=== PATIENT | male | born 1970 | race Caucasian/White ===

== ENCOUNTER 2017-06-24 10:44 | Emergency (ER) | payer OTHER ==
[~2017-06-24] VITALS: Ht 185.4 cm; Wt 127.0 kg
[2017-06-24] MEDS ORDERED: IBUPROFEN 800800 M1 PO (11:41)
[2017-06-24] MEDS ORDERED: NORCO 5-325 TA1 EACH PO (11:41)
[2017-06-24 12:21] VITALS: BP 131/79
== END 2017-06-24 12:28 | disposition home or self-care (01) ==
LOC: M.ERS 10:44
DX: S96.912A Strain of unspecified muscle and tendon at ankle and foot level, left foot, initial encounter (principal); Z98.890 Other specified postprocedural states; X58.XXXA Exposure to other specified factors, initial encounter; Y93.89 Activity, other specified; Y92.89 Other specified places as the place of occurrence of the external cause; Y99.8 Other external cause status

== ENCOUNTER 2019-01-24 18:47 | Inpatient (IN) | payer OTHER ==
[~2019-01-24] VITALS: Ht 182.9 cm; Wt 133.4 kg
[~2019-01-24 18:47] MED LIST: IBUPROFEN 800800 M1 PO; NORCO 5-325 TA1 EACH PO
[2019-01-24 18:53] VITALS: BP 147/100
[2019-01-24 19:19] LABS: ABSOLUTE LYMPHOCYTES 1.1 thou/uL (0.8-5.3); ABSOLUTE MONOCYTES 1.1 thou/uL (0.0-1.2); ABSOLUTE NEUTROPHILS 10.6 thou/uL (1.6-8.1); BASOPHILS 0.4 %; EOSINOPHILS 0.2 %; HEMATOCRIT 44.1 % (42.0-52.0); HEMOGLOBIN 14.2 gm/dL (14.0-18.0); LYMPHOCYTES 8.6 %; MCH 28.4 pg (26.0-34.0); MCHC 32.3 g/dL (28.0-37.0); MONOCYTES 8.3 %; MPV 7.5 fl. (7.2-11.1); NUCLEATED RBCS 0 /100WBC; PLATELET COUNT* 346 thou/uL (150-400); POLYS 82.5 %; RBC 5.02 mil/uL (4.50-6.00); RDW-CV 15.1 % (10.5-14.5); WBC 12.9 thou/uL (4.0-11.0)
[2019-01-24 19:26] LABS: ANION GAP 12 mmol/L (7-16); BUN 14 mg/dL (7-18); CALCIUM 8.7 mg/dL (8.5-10.1); CHLORIDE 102 mmol/L (98-107); CO2 24 mmol/L (21-32); CREATININE 1.1 mg/dL (0.6-1.3); GLUCOSE 139 mg/dL (70-99); POTASSIUM 3.6 mmol/L (3.5-5.1); SODIUM 138 mmol/L (136-145)
[2019-01-24 19:35] LABS: ALBUMIN 3.4 g/dL (3.4-5.0); ALKALINE PHOSPHATASE 118 U/L (46-116); LIPASE 51 U/L (73-393); SGOT 13 U/L (15-37); SGPT 27 U/L (30-65); TOTAL BILIRUBIN 0.5 mg/dL (<0.1-1.0); TOTAL PROTEIN 7.6 g/dL (6.4-8.2); TROPONIN-I LEVEL <0.06 ng/mL (<0.06)
[2019-01-24 21:14] VITALS: BP 137/77
[2019-01-25 00:45] VITALS: BP 131/80
[2019-01-25 04:15] VITALS: BP 125/78
[2019-01-25 04:18] LABS: HEMATOCRIT 41.5 % (42.0-52.0); HEMOGLOBIN 13.8 gm/dL (14.0-18.0); MCH 29.3 pg (26.0-34.0); MCHC 33.3 g/dL (28.0-37.0); MPV 8.1 fl. (7.2-11.1); RBC 4.71 mil/uL (4.50-6.00); WBC 15.8 thou/uL (4.0-11.0)
[2019-01-25 04:30] LABS: CALCIUM 8.6 mg/dL (8.5-10.1); CREATININE 1.1 mg/dL (0.6-1.3); POTASSIUM 3.6 mmol/L (3.5-5.1)
--- NOTE | 2019-01-25 05:57 | NUR ---
Arrived to floor at 0041. He had a ruptured appy and had a lap appy. He has a distended abdomen, bowel sounds are hypoactive. He has lapsites x 3 with gauze and opsite. CHELLY drain is midlower abdomen under his umbilicus. He is drowsy but easily awakened. He is on 4L n/c and capno monitor, he hasn't alarmed and he does have a history of sleep apnea. He had pain med x 1. He has tried to vois but has been unable.
[2019-01-25 07:50] VITALS: BP 113/77
[2019-01-25 16:00] VITALS: BP 124/79
--- NOTE | 2019-01-25 16:10 | NUR ---
cm completed initial assessment to edu on role of cm and discuss d/c plan. pt a&O. pt lives at home w/brother. stated his brother and mother are is support system, mom will help out if need be. pt is active, employed and independent w/adls. pt has no hx w/snf or hh. 0 DMEs. cm to remain available to assist as needed.
--- NOTE | 2019-01-25 17:18 | NUR ---
PT REMAINED ALERT AND ORIENTED. PT RESTING IN ROOM. PT C/O PAIN AND NAUSEA. MEDS GIVEN ORDERED. PT TOLERATING CLEAR LIQUID DIET. FALL RISK PRECAUTIONS IN PLACE. HOURLY ROUNDING COMPLETED. WILL CONTINUE TO MONITOR.
[2019-01-25 20:00] VITALS: BP 128/85
[2019-01-26 00:15] VITALS: BP 127/87
[2019-01-26 04:10] VITALS: BP 136/94
[2019-01-26 04:48] LABS: HEMATOCRIT 40.8 % (42.0-52.0); HEMOGLOBIN 13.2 gm/dL (14.0-18.0); MCH 28.8 pg (26.0-34.0); MCHC 32.4 g/dL (28.0-37.0); MPV 7.9 fl. (7.2-11.1); RBC 4.59 mil/uL (4.50-6.00); RDW-CV 15.5 % (10.5-14.5); WBC 11.4 thou/uL (4.0-11.0)
--- NOTE | 2019-01-26 04:51 | NUR ---
PT ALERT AND ORIENTED. VITALS STABLE WITH 4L O2 BY NC. MEDS GIVEN ORDERED. PAIN MANAGED WITH OXY IR AND TORADOL. NAUSEA AND VOMITING RESOLVED WITH ZOFRAN. ABDOMINAL DRESSING CLEAN AND DRY. LOW ABD CHELLY DRAIN IN PLACE. FLUID RUNNING ORDERED. HOURLY ROUNDING COMPLETED. WILL CONTINUE TO MONITOR.
[2019-01-26 05:19] LABS: ALBUMIN 2.6 g/dL (3.4-5.0); CALCIUM 8.1 mg/dL (8.5-10.1); CREATININE 1.3 mg/dL (0.6-1.3); MAGNESIUM 2.2 mg/dL (1.8-2.4); PHOSPHORUS* 3.1 mg/dL (2.5-4.9); POTASSIUM 3.7 mmol/L (3.5-5.1); TOTAL BILIRUBIN 0.4 mg/dL (<0.1-1.0)
[2019-01-26 07:30] VITALS: BP 145/88
[2019-01-26 16:00] VITALS: BP 140/79
--- NOTE | 2019-01-26 17:27 | NUR ---
pt remained alert and oriented. pt resting in room. titrated off o2. pt up to chair. pt c/o nausea. meds given as ordered. pt vomitied 2100 cc green vomit. pt made npo after notifying surgery. call back if continues while npo, may need ng tube place. fall risk precautions in place. hourly rounding completed will continue to monitor.
[2019-01-26 19:40] VITALS: BP 108/71
[2019-01-27 04:13] LABS: HEMATOCRIT 40.8 % (42.0-52.0); HEMOGLOBIN 13.3 gm/dL (14.0-18.0); MCH 28.9 pg (26.0-34.0); MCHC 32.7 g/dL (28.0-37.0); MCV 88.2 fL (80.0-100.0); MPV 8.1 fl. (7.2-11.1); RBC 4.62 mil/uL (4.50-6.00); RDW-CV 15.7 % (10.5-14.5); WBC 10.8 thou/uL (4.0-11.0)
[2019-01-27 04:28] LABS: ALBUMIN 2.4 g/dL (3.4-5.0); CALCIUM 8.7 mg/dL (8.5-10.1); CREATININE 1.1 mg/dL (0.6-1.3); MAGNESIUM 2.2 mg/dL (1.8-2.4); PHOSPHORUS* 2.5 mg/dL (2.5-4.9); POTASSIUM 3.7 mmol/L (3.5-5.1); TOTAL BILIRUBIN 0.4 mg/dL (<0.1-1.0); TOTAL PROTEIN 6.8 g/dL (6.4-8.2)
--- NOTE | 2019-01-27 05:58 | NUR ---
PT ALERT AND ORIENTED. VITALS STABLE RA. MEDS GIVEN ORDERED. ABD DRESSING C/D/I. CHELLY DRAIN IN PLACE, DRAINING SEROUS DRAINAGE. TORADOL GIVEN PER PT REQUEST. ZOFRAN GIVEN ONCE THIS SHIFT, PT VOMITED 1000CC. NPO EXCEPT ICE CHIPS. HOURLY ROUNDINGS COMPLETED. WILL CONTINUE TO MONITOR.
[2019-01-27 07:25] VITALS: BP 119/72
[2019-01-27 16:00] VITALS: BP 122/74
--- NOTE | 2019-01-27 17:04 | NUR ---
PT REMAINED ALERT AND ORIENTED. PT RESTING IN ROOM. NO N/V THIS SHIFT. PT WALKED IN HALLS TODAY. CHELLY DRAIN INTACT. NEW IV RT HAND. FLUIDS AND ABX RUNNING ORDERED. SUPPOSSITORY GIVEN WITH NO BM AT THIS TIME, GAS IS BEING PASSED. FALL RISK PRECAUTIONS IN PLACE. HOURLY ROUNDING COMPLETED. WILL CONTINUE TO MONITOR.
[2019-01-27 20:00] VITALS: BP 134/74
--- NOTE | 2019-01-28 04:55 | NUR ---
PT ALERT AND ORIENTED. VITALS STABLE RA. MEDS, IV FLUID GIVEN ORDERED. PT DENIED PAIN. NO NAUSEA OR VOMITING THIS SHIFT. NPO MAINTAINED EXCEPT MEDS/ICE CHIPS. ABD DRESSING C/D/I. CHELLY DRAIN IN PLACE WITH SEROUS DRAINAGE. PT SLEEPING ON HOURLY ROUNDINGS. WILL CONTINUE TO MONITOR.
[2019-01-28 04:56] LABS: CALCIUM 8.1 mg/dL (8.5-10.1); CREATININE 1.2 mg/dL (0.6-1.3); POTASSIUM 3.6 mmol/L (3.5-5.1)
[2019-01-28 09:05] VITALS: BP 121/78
--- NOTE | 2019-01-28 09:05 | NUR ---
PATIENT PLEASANT AND COOPERATIVE W/ ASSESS AND CARES. CHELLY SITE NOTED WNL. DRSG CHANGED. CHELLY DRNG NOTED SEROUS. IV SITE NOTED WNL, FLUIDS INFUSING S/O DIFF. SITTING UP IN RECLINER WATCHING TV. PATIENT DENIES N/V/D, DENIES PAIN AT THIS TIME. ~TJRN
--- NOTE | 2019-01-28 19:00 | NUR ---
PATIENT PLEASANT AND COOPERATIVE W/ ASSESS AND CARES THRU SHIFT. IV FLUIDS INFUSING S/O DIFF. IV SITE NOTED WNL. CHELLY DRAIN NOTED WNL. PATIENT RESTING IN BED AT THIS TIME, SCDs ON BLE, FUNCTIONING APPROP. PATIENT WATCHING TV. DENIES NURSING NEEDS AT THIS TIME. ~RODNEY
[2019-01-28 20:40] VITALS: BP 140/85
--- NOTE | 2019-01-29 04:46 | NUR ---
PATIENT HAS REMAINED ALERT AND ORIENTED X 4 THROUGHOUT THE SHIFT AND RESTING QUIETLY ON HOURLY ROUNDS. IVF'S AND ANTIBIOTICS PER ORDER. NO NAUSEA/VOMITING TONIGHT. LOOSE BM'S ON DAYSHIFT. DRESSINGS OVER CHELLY AND LAP SITES CLEAN AND DRY. VITAL SIGNS STABLE. CONTINUE TO MONITOR.
[2019-01-29 04:57] VITALS: BP 135/85
[2019-01-29 07:25] VITALS: BP 134/83
[2019-01-29 16:30] VITALS: BP 139/86
--- NOTE | 2019-01-29 17:20 | NUR ---
PT REMAINED ALERT AND ORIENTED. PT RESTING IN ROOM. PT DENIED ANY NEEDS AT THIS TIME. FALL RISK PRECAUTIONS IN PLACE. HOURLY ROUNDING COMPLETED. WILL CONTINUE TO MONITOR.
[2019-01-29 20:29] VITALS: BP 144/83
--- NOTE | 2019-01-30 05:20 | NUR ---
AT BEGINNING OF SHIFT EMPTIED 100 ML FLUID FROM CHELLY DRAIN, ASSESSMENT OF PAIN WAS REPORTED AT 0/10. HE DID NOT REPORT AND NAUSEA OR VOMITING. HE SLEPT THROUGH THE SHIFT AND DID NOT REQUIRE AND PAIN MEDICATION. NO WORSENING OF CONDITION OR NEW REPORT OF PAIN.
[2019-01-30 07:25] VITALS: BP 142/87
[2019-01-30] MEDS ORDERED: TYLENOL EXTRA500 MG PO (08:36)
[2019-01-30] MEDS ORDERED: AMOXICILLIN 50500 MG PO (08:37)
[2019-01-30] MEDS ORDERED: FLAGYL500 M1 PO (08:38)
[2019-01-30] MEDS ORDERED: OXYCODONE HCL 55 MG PO (08:39)
[2019-01-30 08:40] VITALS: BP 142/87
[2019-01-30 09:35] VITALS: BP 142/87
--- NOTE | 2019-01-30 09:35 | NUR ---
PT GIVEN DISHCARGE INFORMATION, CARE NOTES, AND PRESCRIPTIONS. IV REMOVED. FALL RISK PRECAUTIONS IN PLACE. CHELLY REMOVED. HOURLY ROUNDING COMPLETED. PT LEFT AMBULATORY WITH NURSING STAFF TO HOME.
== END 2019-01-30 09:37 | disposition home or self-care (01) | DRG 339 ==
LOC: M.ERS 18:47 → M.TBA-ER 21:55 → M.ORTHSURG 23:33 → M.TBA-ER 23:33 → M.ORTHSURG 01-25 00:41 → M.TBA-ER 01-25 00:41 → M.ORTHSURG 01-25 00:41
PROVIDERS: Emergency Medicine Emergency Medical Services; Surgery; ADMIT Surgery
PROC: 0DTJ4ZZ Resection of Appendix, Percutaneous Endoscopic Approach (ICD-10-PCS; principal; 2019-01-24)
DX: K35.32 Acute appendicitis with perforation, localized peritonitis, and gangrene, without abscess (principal); K56.7 Ileus, unspecified; I10 Essential (primary) hypertension; E66.9 Obesity, unspecified; G47.30 Sleep apnea, unspecified; D72.829 Elevated white blood cell count, unspecified; Z68.39 Body mass index [BMI] 39.0-39.9, adult